=== PATIENT | male | born 1985 | race Caucasian/White ===

== ENCOUNTER 2016-07-28 08:18 | Emergency (ER) | payer OTHER, BC ==
[2016-07-28] MEDS ORDERED: fentaNYL 100 MCG/2 ML SDV ONE (08:38)
[2016-07-28] MEDS ORDERED: ceFAZolin 1 GM Vial ONE (08:38)
[2016-07-28] MEDS ORDERED: Lidocaine 1% 30 ML SDV ONE (10:42)
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
--- NOTE | 2016-08-05 07:36 | ER ---
Date of Service: 07/28/2016 ADDENDUM: Both of the lacerations that were repaired were located in the patient's forehead above the right and left eyebrow. MWK: 08/04/2016 15:45:34 MODL: 08/04/2016 20:55:46 /[id number]
== END 2016-07-28 09:00 | disposition short-term general hospital (02) ==
LOC: VM.ED 08:18
DX: S01.81XA Laceration without foreign body of other part of head, initial encounter (principal); S01.21XA Laceration without foreign body of nose, initial encounter; V49.50XA Passenger injured in collision with unspecified motor vehicles in traffic accident, initial encounter
CPT/HCPCS: 12011; 12054; 36415; 71010; 80047; 85025; 85610; 85730; 96374; 99285; J0690; J3010